=== PATIENT | female | born 1950 | race Caucasian/White ===

== ENCOUNTER → 2018-11-17 | Outpatient (CLI) | payer BC ==
--- NOTE | 2018-11-17 21:49 | ECHO ---
DATE OF PROCEDURE: 11/17/2018 REFERRING PHYSICIAN: Dmitry Theodore INDICATION: Chronic respiratory failure with hypoxia HEIGHT: 165 cm WEIGHT: 83 kg DIMENSIONS: IVS: 1.0 LV: 4.1 LVPW: 1.1 LA: 2.8 Aorta: 2.7 IVC: 1.3 Mitral E wave velocity: 80, A-wave: 65 E prime septal: 7.2. E prime lateral: 12.5. Left atrial volume index: 15 FINDINGS The study is of fair technical quality. The patient is in sinus rhythm. Left ventricle is of normal size and hyperdynamic function. I estimate overall left ventricular ejection fraction (LVEF) around 70%. Based on limited quality of images I cannot rule out subtle wall motion abnormalities. Right ventricle does not appear enlarged and is normally contractile. Both atria appear normal. Aortic, mitral and tricuspid valves appear normal. Pulmonic valve was not visualized. No pericardial effusion is noted. Inferior vena cava is of small caliber and appropriately collapses with respiration indicative of normal central venous pressure. Aortic root is normal. Aortic arch was not seen. Abdominal aorta appears normal. Doppler interrogation of aortic valve reveals no stenosis or insufficiency. There is trace mitral insufficiency. Tricuspid valve is functionally competent. Pulmonic valve was not well seen. Mitral inflow pattern and tissue Doppler imaging of mitral annulus reveal probably normal diastolic function of left ventricle even though septal tissue Doppler velocity is reduced. CONCLUSIONS: 1. Study is of limited technical quality. 2. Normal LV size with hyperdynamic LV systolic function and probably normal diastolic function. 3. No significant aortic, mitral and tricuspid valvular disease. 4. Normal central venous pressure. 5. Unable to estimate pulmonary artery pressure, but no signs to suggest pulmonary hypertension. COMMENT: Subacute bacterial endocarditis (SBE) prophylaxis is not recommended.
== END ==
LOC: M CARPUL 11:32
PROVIDERS: ATTEND Internal Medicine Pulmonary Disease
DX: J96.11 Chronic respiratory failure with hypoxia (principal)

== ENCOUNTER 2023-07-01 09:44 | Inpatient (IN) | payer BC, MEDICARE ==
[2023-07-01] VITALS (11 sets, daily range): BP systolic 129–164; BP diastolic 64–115; TEMP 97.2–98.8; O2SAT 85–95
[~2023-07-01] VITALS: Ht 165.1 cm; Wt 85.9 kg
[2023-07-01] MEDS ORDERED: methylPREDNISolone 125MG 2ML VIAL IV ONE (10:10)
[2023-07-01 10:36] LABS: ABG BASE EXCESS 17.3 (-2.0-2.0); ABG HCO3 50.7 MMOL/L (22.0-26.0); ABG O2 SATURATION 83.8 % (95.0-99.0); ABG STANDARD HCO3 41.1 MMOL/L. (22.0-26.0); ABG TOTAL CO2 54.4 MMOL/L (23.0-31.0)
[2023-07-01] MEDS: IPRATROPIUM 0.5MG/ALBUTEROL 2.5MG INH SOL UD 3ML (DUONEB) NEB PRN ×2 (10:39→13:59)
[2023-07-01 10:40] LABS: ABG PARTIAL PRESSURE CO2 120.2 mmHg (35.0-45.0); ABG PARTIAL PRESSURE O2 44.7 mmHg (75.0-100.0); ABG pH (ARTERIAL) 7.243 UNITS (7.350-7.450)
[2023-07-01] MEDS ORDERED: cefTRIAXone SOD 2 GM in D5W MINI-BAG PLUS 50 ML IV ONE (11:10)
[2023-07-01] MEDS ORDERED: AZITHROMYCIN INJ 500 MG, VIAL MATE ADAPTER 1 EACH in D5W 250 ML IV ONE (11:10)
[2023-07-01 11:12] LABS: BASO # 0.1 10^3/uL (0.0-0.2); BASO % 0.7 % (0.0-1.0); EOS # 0.1 10^3/uL (0.0-0.5); HEMATOCRIT 43.8 % (36.0-47.0); HEMOGLOBIN 13.2 g/dl (12.0-15.5); LYMPH # 0.4 10^3/uL (1.5-5.0); LYMPH % 5.3 % (24.0-44.0); MEAN CORPUSCULAR HEMOGLOBIN 31.1 pg (27.0-33.0); MEAN CORPUSCULAR HGB CONC 30.1 g/dl (32.0-36.5); MEAN CORPUSCULAR VOLUME 103.3 fl (80.0-96.0); MONO # 0.3 10^3/uL (0.0-0.8); MONO % 4.5 % (2.0-8.0); NEUTROPHILS # 6.3 10^3/uL (1.5-8.5); NEUTROPHILS % 87.8 % (36.0-66.0); PLATELET COUNT, AUTOMATED 147 10^3/uL (150-450); RED BLOOD COUNT 4.24 10^6/uL (4.00-5.40); WHITE BLOOD COUNT 7.2 10^3/uL (4.0-10.0)
[2023-07-01 11:23] LABS: INR 1.02; PROTHROMBIN TIME 13.1 SECONDS (12.5-14.5)
[2023-07-01 11:47] LABS: THYROID STIMULATING HORMONE 0.799 uIU/ML (0.55-4.78); THYROXINE (T4) 8.8 UG/DL (4.5-10.9)
[2023-07-01 11:51] LABS: ALBUMIN 3.4 G/DL (3.2-5.2); ALKALINE PHOSPHATASE 91 U/L (46-116); ALT/SGPT 16 U/L (7.0-40); AST/SGOT 32 U/L (<34); BILIRUBIN,DIRECT < 0.1 MG/DL (<0.4); BILIRUBIN,TOTAL 0.3 MG/DL (0.3-1.2); BLOOD UREA NITROGEN 11 MG/DL (9-23); CALCIUM LEVEL 8.6 MG/DL (8.3-10.6); CARBON DIOXIDE LEVEL > 40.0 MMOL/L (20-31); CHLORIDE LEVEL 98 MMOL/L (98-107); CREATININE FOR GFR 0.62 MG/DL (0.55-1.30); GLOMERULAR FILTRATION RATE > 60.0 (>39); GLUCOSE, FASTING 115 MG/DL (74-106); POTASSIUM SERUM 5.2 MMOL/L (3.5-5.1); SODIUM LEVEL 145 MMOL/L (136-145); TOTAL PROTEIN 6.8 G/DL (5.7-8.2)
[2023-07-01 13:00] LABS: ABG BASE EXCESS 14.5 (-2.0-2.0); ABG HCO3 44.2 MMOL/L (22.0-26.0); ABG O2 SATURATION 89.8 % (95.0-99.0); ABG PARTIAL PRESSURE O2 51.4 mmHg (75.0-100.0); ABG STANDARD HCO3 38.2 MMOL/L. (22.0-26.0); ABG TOTAL CO2 46.8 MMOL/L (23.0-31.0); ABG pH (ARTERIAL) 7.346 UNITS (7.350-7.450)
[2023-07-01 13:01] LABS: ABG PARTIAL PRESSURE CO2 82.7 mmHg (35.0-45.0)
[2023-07-01] MEDS ORDERED: MED REC IN PROGRESS XX SCH (13:35)
[2023-07-01] MEDS ORDERED: FURO40TA2 PO (13:41)
[2023-07-01] MEDS ORDERED: FLUT50SP17 EN (13:41)
[2023-07-01] MEDS ORDERED: LEVO75TA4 PO (13:41)
[2023-07-01] MEDS ORDERED: MONT10TA97 PO (13:41)
[2023-07-01] MEDS ORDERED: FLUT1BLS8 (13:41)
[2023-07-01] MEDS ORDERED: PARO40TA2 PO (13:41)
[2023-07-01] MEDS ORDERED: ATOR1TAB21 PO (13:41)
[2023-07-01] MEDS ORDERED: ALBU2.5V10 INH (13:41)
[2023-07-01] MEDS: PANTOPRAZOLE 40MG VIAL IV SCH (17:00)
[2023-07-01] MEDS: methylPREDNISolone 125MG 2ML VIAL IV SCH (18:03)
[2023-07-01] MEDS: SYMBICORT 160/4.5MCG INHALER 6GM INH SCH (19:38)
[2023-07-01] MEDS: ENOXAPARIN 30MG/0.3ML SYRINGE (J1650 PER 10MG) SC SCH (20:54)
[2023-07-02] VITALS (17 sets, daily range): BP systolic 113–161; BP diastolic 59–88; TEMP 96.9–97.8; O2SAT 91–100
[2023-07-02] MEDS: methylPREDNISolone 125MG 2ML VIAL IV SCH ×3 (03:16→17:06)
[2023-07-02 05:21] LABS: ALBUMIN 3.4 G/DL (3.2-5.2); ALKALINE PHOSPHATASE 84 U/L (46-116); ALT/SGPT 18 U/L (7.0-40); AST/SGOT 15 U/L (<34); BILIRUBIN,TOTAL 0.4 MG/DL (0.3-1.2); BLOOD UREA NITROGEN 15 MG/DL (9-23); CALCIUM LEVEL 8.9 MG/DL (8.3-10.6); CARBON DIOXIDE LEVEL > 40.0 MMOL/L (20-31); CHLORIDE LEVEL 98 MMOL/L (98-107); CREATININE FOR GFR 0.61 MG/DL (0.55-1.30); GLOMERULAR FILTRATION RATE > 60.0 (>39); GLUCOSE, FASTING 130 MG/DL (74-106); PHOSPHORUS LEVEL 3.6 MG/DL (2.4-5.1); POTASSIUM SERUM 4.6 MMOL/L (3.5-5.1); SODIUM LEVEL 144 MMOL/L (136-145); TOTAL PROTEIN 6.6 G/DL (5.7-8.2)
[2023-07-02 05:40] LABS: ABG BASE EXCESS 13.3 (-2.0-2.0); ABG HCO3 41.9 MMOL/L (22.0-26.0); ABG PARTIAL PRESSURE O2 78.9 mmHg (75.0-100.0); ABG STANDARD HCO3 37.1 MMOL/L. (22.0-26.0); ABG TOTAL CO2 44.2 MMOL/L (23.0-31.0)
[2023-07-02 05:42] LABS: ABG PARTIAL PRESSURE CO2 74.2 mmHg (35.0-45.0)
[2023-07-02] MEDS: LEVOTHYROXINE 75MCG TABLET (0.075MG) PO SCH (05:49)
[2023-07-02] MEDS: SYMBICORT 160/4.5MCG INHALER 6GM INH SCH ×2 (07:15→19:08)
[2023-07-02] MEDS: TIOTROPIUM INHALER/CAPSULE (SPIRIVA) INH SCH (07:15)
[2023-07-02] MEDS: PANTOPRAZOLE 40MG VIAL IV SCH (09:07)
[2023-07-02] MEDS: cefTRIAXone SOD 1 GM in D5W MINI-BAG PLUS 50 ML IV SCH (11:18)
[2023-07-02] MEDS ORDERED: IPRATROPIUM 0.5MG/ALBUTEROL 2.5MG INH SOL UD 3ML (DUONEB) NEB PRN (12:10)
[2023-07-02] MEDS: IPRATROPIUM 0.5MG/ALBUTEROL 2.5MG INH SOL UD 3ML (DUONEB) NEB SCH ×4 (12:16→23:18)
[2023-07-02] MEDS: AZITHROMYCIN 250MG TABLET PO SCH (12:36)
[2023-07-02] MEDS ORDERED: AZITHROMYCIN INJ 500 MG, VIAL MATE ADAPTER 1 EACH in NS 250 ML IV SCH (13:00)
[2023-07-02] MEDS: ENOXAPARIN 30MG/0.3ML SYRINGE (J1650 PER 10MG) SC SCH (20:04)
[2023-07-03] VITALS (10 sets, daily range): BP systolic 115–140; BP diastolic 58–88; TEMP 96.9–98.3; O2SAT 92–100
[2023-07-03] MEDS: methylPREDNISolone 125MG 2ML VIAL IV SCH ×3 (01:10→17:35)
[2023-07-03] MEDS: IPRATROPIUM 0.5MG/ALBUTEROL 2.5MG INH SOL UD 3ML (DUONEB) NEB SCH ×6 (02:43→22:36)
[2023-07-03] MEDS: LEVOTHYROXINE 75MCG TABLET (0.075MG) PO SCH (05:03)
[2023-07-03 05:53] LABS: ALBUMIN 3.2 G/DL (3.2-5.2); ALKALINE PHOSPHATASE 72 U/L (46-116); ALT/SGPT 15 U/L (7.0-40); AST/SGOT 14 U/L (<34); BILIRUBIN,TOTAL 0.3 MG/DL (0.3-1.2); BLOOD UREA NITROGEN 27 MG/DL (9-23); CALCIUM LEVEL 9.1 MG/DL (8.3-10.6); CARBON DIOXIDE LEVEL > 40.0 MMOL/L (20-31); CHLORIDE LEVEL 98 MMOL/L (98-107); CREATININE FOR GFR 0.71 MG/DL (0.55-1.30); GLOMERULAR FILTRATION RATE > 60.0 (>39); GLUCOSE, FASTING 143 MG/DL (74-106); PHOSPHORUS LEVEL 3.3 MG/DL (2.4-5.1); POTASSIUM SERUM 4.3 MMOL/L (3.5-5.1); SODIUM LEVEL 142 MMOL/L (136-145); TOTAL PROTEIN 6.1 G/DL (5.7-8.2)
[2023-07-03 06:06] LABS: ABG BASE EXCESS 7.9 (-2.0-2.0); ABG HCO3 33.8 MMOL/L (22.0-26.0); ABG O2 SATURATION 98.4 % (95.0-99.0); ABG PARTIAL PRESSURE CO2 53.1 mmHg (35.0-45.0); ABG PARTIAL PRESSURE O2 111.6 mmHg (75.0-100.0); ABG STANDARD HCO3 31.7 MMOL/L. (22.0-26.0); ABG TOTAL CO2 35.5 MMOL/L (23.0-31.0); ABG pH (ARTERIAL) 7.422 UNITS (7.350-7.450)
[2023-07-03] MEDS: TIOTROPIUM INHALER/CAPSULE (SPIRIVA) INH SCH (07:18)
[2023-07-03] MEDS: SYMBICORT 160/4.5MCG INHALER 6GM INH SCH ×2 (07:18→19:55)
[2023-07-03] MEDS: AZITHROMYCIN 250MG TABLET PO SCH (09:03)
[2023-07-03] MEDS: PANTOPRAZOLE 40MG VIAL IV SCH (09:03)
[2023-07-03] MEDS: cefTRIAXone SOD 1 GM in D5W MINI-BAG PLUS 50 ML IV SCH (10:52)
[2023-07-03] MEDS ORDERED: ENOXAPARIN 40MG/0.4ML SYRINGE (J1650 PER 10MG) SC SCH (21:00)
[2023-07-04] VITALS (35 sets, daily range): BP systolic 102–148; BP diastolic 55–87; TEMP 96–97.6; O2SAT 88–99
[2023-07-04] MEDS: METOPROLOL 5 MG/5 ML VIAL IV SCH ×3 (00:05→00:15)
[2023-07-04] MEDS: methylPREDNISolone 125MG 2ML VIAL IV SCH ×3 (02:22→18:24)
[2023-07-04] MEDS: IPRATROPIUM 0.5MG/ALBUTEROL 2.5MG INH SOL UD 3ML (DUONEB) NEB SCH ×6 (03:47→23:43)
[2023-07-04 04:53] LABS: ABG BASE EXCESS 13.7 (-2.0-2.0); ABG HCO3 41.9 MMOL/L (22.0-26.0); ABG O2 SATURATION 99.3 % (95.0-99.0); ABG PARTIAL PRESSURE O2 150.5 mmHg (75.0-100.0); ABG STANDARD HCO3 37.6 MMOL/L. (22.0-26.0); ABG TOTAL CO2 44.1 MMOL/L (23.0-31.0); ABG pH (ARTERIAL) 7.397 UNITS (7.350-7.450)
[2023-07-04 04:56] LABS: ABG PARTIAL PRESSURE CO2 69.7 mmHg (35.0-45.0)
[2023-07-04] MEDS: LEVOTHYROXINE 75MCG TABLET (0.075MG) PO SCH (06:25)
[2023-07-04 06:41] LABS: ALBUMIN 3.2 G/DL (3.2-5.2); ALKALINE PHOSPHATASE 75 U/L (46-116); ALT/SGPT 60 U/L (7.0-40); AST/SGOT 36 U/L (<34); BILIRUBIN,TOTAL 0.3 MG/DL (0.3-1.2); BLOOD UREA NITROGEN 24 MG/DL (9-23); CALCIUM LEVEL 8.8 MG/DL (8.3-10.6); CARBON DIOXIDE LEVEL > 40.0 MMOL/L (20-31); CHLORIDE LEVEL 98 MMOL/L (98-107); CREATININE FOR GFR 0.68 MG/DL (0.55-1.30); GLOMERULAR FILTRATION RATE > 60.0 (>39); GLUCOSE, FASTING 131 MG/DL (74-106); PHOSPHORUS LEVEL 4.1 MG/DL (2.4-5.1); POTASSIUM SERUM 4.4 MMOL/L (3.5-5.1); SODIUM LEVEL 141 MMOL/L (136-145); TOTAL PROTEIN 6.2 G/DL (5.7-8.2)
[2023-07-04] MEDS ORDERED: dilTIAZem 25MG/5ML VIAL IV STA (07:33)
[2023-07-04] MEDS ORDERED: NS 1,000 ML IV ONE (08:00)
[2023-07-04] MEDS: TIOTROPIUM INHALER/CAPSULE (SPIRIVA) INH SCH (08:46)
[2023-07-04] MEDS: SYMBICORT 160/4.5MCG INHALER 6GM INH SCH ×2 (08:46→20:32)
[2023-07-04] MEDS: MIDODRINE 5 MG TAB PO SCH ×2 (09:48→12:00)
[2023-07-04] MEDS: PANTOPRAZOLE 40MG VIAL IV SCH (09:48)
[2023-07-04] MEDS: APIXABAN 5 MG TAB (ELIQUIS) PO SCH ×2 (09:49→21:10)
[2023-07-04] MEDS: CEFDINIR 300 MG CAP (OMNICEF) PO SCH ×2 (09:49→21:10)
[2023-07-04] MEDS: guaiFENesin ER TABLET 600 MG TAB PO SCH ×2 (09:49→21:10)
[2023-07-04] MEDS: AZITHROMYCIN 250MG TABLET PO SCH (09:49)
[2023-07-04] MEDS ORDERED: diltiaZEM 125 MG in NS 100 ML IV SCH (10:00)
[2023-07-04] MEDS: dilTIAZem 30 MG TAB PO SCH ×3 (12:17→23:55)
[2023-07-04] MEDS ORDERED: ONDANSETRON 4MG 2ML VIAL IV ONE (13:00)
[2023-07-04] MEDS ORDERED: ONDANSETRON 4MG 2ML VIAL IV PRN (17:00)
[2023-07-05] VITALS (9 sets, daily range): BP systolic 128–143; BP diastolic 63–79; TEMP 97.2–98.1; O2SAT 89–100
[2023-07-05] MEDS: methylPREDNISolone 125MG 2ML VIAL IV SCH ×3 (02:03→18:43)
[2023-07-05] MEDS: IPRATROPIUM 0.5MG/ALBUTEROL 2.5MG INH SOL UD 3ML (DUONEB) NEB SCH ×6 (03:16→23:30)
[2023-07-05] MEDS: LEVOTHYROXINE 75MCG TABLET (0.075MG) PO SCH (05:49)
[2023-07-05] MEDS: dilTIAZem 30 MG TAB PO SCH ×3 (05:50→18:43)
[2023-07-05 05:56] LABS: ABG BASE EXCESS 11.1 (-2.0-2.0); ABG HCO3 39.1 MMOL/L (22.0-26.0); ABG O2 SATURATION 98.2 % (95.0-99.0); ABG PARTIAL PRESSURE O2 109.7 mmHg (75.0-100.0); ABG STANDARD HCO3 34.9 MMOL/L. (22.0-26.0); ABG TOTAL CO2 41.2 MMOL/L (23.0-31.0); ABG pH (ARTERIAL) 7.375 UNITS (7.350-7.450)
[2023-07-05 05:59] LABS: ABG PARTIAL PRESSURE CO2 68.4 mmHg (35.0-45.0)
[2023-07-05 06:15] LABS: ALBUMIN 3.1 G/DL (3.2-5.2); ALKALINE PHOSPHATASE 70 U/L (46-116); ALT/SGPT 91 U/L (7.0-40); AST/SGOT 40 U/L (<34); BILIRUBIN,TOTAL 0.3 MG/DL (0.3-1.2); BLOOD UREA NITROGEN 25 MG/DL (9-23); CARBON DIOXIDE LEVEL > 40.0 MMOL/L (20-31); CHLORIDE LEVEL 100 MMOL/L (98-107); CREATININE FOR GFR 0.64 MG/DL (0.55-1.30); GLOMERULAR FILTRATION RATE > 60.0 (>39); GLUCOSE, FASTING 135 MG/DL (74-106); PHOSPHORUS LEVEL 4.4 MG/DL (2.4-5.1); POTASSIUM SERUM 4.8 MMOL/L (3.5-5.1); SODIUM LEVEL 142 MMOL/L (136-145)
[2023-07-05] MEDS: TIOTROPIUM INHALER/CAPSULE (SPIRIVA) INH SCH (08:36)
[2023-07-05] MEDS: SYMBICORT 160/4.5MCG INHALER 6GM INH SCH ×2 (08:38→19:36)
[2023-07-05] MEDS: APIXABAN 5 MG TAB (ELIQUIS) PO SCH ×2 (09:42→20:54)
[2023-07-05] MEDS: guaiFENesin ER TABLET 600 MG TAB PO SCH ×2 (09:43→20:54)
[2023-07-05] MEDS: AZITHROMYCIN 250MG TABLET PO SCH (09:43)
[2023-07-05] MEDS: PANTOPRAZOLE 40MG TAB (PROTONIX) PO SCH (09:43)
[2023-07-05] MEDS: CEFDINIR 300 MG CAP (OMNICEF) PO SCH ×2 (09:50→20:54)
[2023-07-06] MEDS: methylPREDNISolone 125MG 2ML VIAL IV SCH ×2 (02:04→09:42)
[2023-07-06] MEDS: IPRATROPIUM 0.5MG/ALBUTEROL 2.5MG INH SOL UD 3ML (DUONEB) NEB SCH ×6 (02:58→23:06)
[2023-07-06] MEDS: dilTIAZem 30 MG TAB PO SCH ×5 (05:18→23:00)
[2023-07-06] MEDS: LEVOTHYROXINE 75MCG TABLET (0.075MG) PO SCH (05:24)
[2023-07-06 06:00] VITALS: BP 155/83; TEMP 97.7; O2SAT 97
[2023-07-06 07:47] LABS: ALBUMIN 2.9 G/DL (3.2-5.2); ALKALINE PHOSPHATASE 64 U/L (46-116); ALT/SGPT 79 U/L (7.0-40); AST/SGOT 19 U/L (<34); BILIRUBIN,TOTAL 0.4 MG/DL (0.3-1.2); BLOOD UREA NITROGEN 26 MG/DL (9-23); CALCIUM LEVEL 8.7 MG/DL (8.3-10.6); CARBON DIOXIDE LEVEL 40 MMOL/L (20-31); CHLORIDE LEVEL 100 MMOL/L (98-107); GLOMERULAR FILTRATION RATE > 60.0 (>39); GLUCOSE, FASTING 135 MG/DL (74-106); PHOSPHORUS LEVEL 4.2 MG/DL (2.4-5.1); POTASSIUM SERUM 5.3 MMOL/L (3.5-5.1); SODIUM LEVEL 140 MMOL/L (136-145); TOTAL PROTEIN 5.7 G/DL (5.7-8.2)
[2023-07-06 08:10] VITALS: O2SAT 92
[2023-07-06] MEDS: TIOTROPIUM INHALER/CAPSULE (SPIRIVA) INH SCH (08:11)
[2023-07-06] MEDS: SYMBICORT 160/4.5MCG INHALER 6GM INH SCH ×2 (08:11→19:42)
[2023-07-06] MEDS: PANTOPRAZOLE 40MG TAB (PROTONIX) PO SCH (09:42)
[2023-07-06] MEDS: AZITHROMYCIN 250MG TABLET PO SCH (09:42)
[2023-07-06] MEDS: CEFDINIR 300 MG CAP (OMNICEF) PO SCH ×2 (09:42→21:56)
[2023-07-06] MEDS: APIXABAN 5 MG TAB (ELIQUIS) PO SCH ×2 (09:42→21:56)
[2023-07-06] MEDS: guaiFENesin ER TABLET 600 MG TAB PO SCH ×2 (09:42→21:56)
[2023-07-06 12:57] VITALS: BP 143/74
[2023-07-06 13:57] VITALS: BP 146/73; TEMP 97.7; O2SAT 87
[2023-07-06 19:44] VITALS: O2SAT 95
[2023-07-06 20:43] VITALS: BP 137/71; TEMP 98.1; O2SAT 90
[2023-07-06] MEDS: methylPREDNISolone 40MG 1ML VIAL IV SCH (21:56)
[2023-07-06] MEDS ORDERED: MAALOX 30 ML SUSP *UDC PO PRN (22:35)
[2023-07-07] MEDS: IPRATROPIUM 0.5MG/ALBUTEROL 2.5MG INH SOL UD 3ML (DUONEB) NEB SCH ×6 (03:21→23:19)
[2023-07-07] MEDS: dilTIAZem 30 MG TAB PO SCH ×3 (05:49→17:40)
[2023-07-07] MEDS: LEVOTHYROXINE 75MCG TABLET (0.075MG) PO SCH (05:50)
[2023-07-07 05:51] VITALS: BP 136/78; TEMP 97.5; O2SAT 94
[2023-07-07 07:34] LABS: ALKALINE PHOSPHATASE 65 U/L (46-116); ALT/SGPT 73 U/L (7.0-40); AST/SGOT 17 U/L (<34); BILIRUBIN,TOTAL 0.4 MG/DL (0.3-1.2); BLOOD UREA NITROGEN 26 MG/DL (9-23); CALCIUM LEVEL 8.9 MG/DL (8.3-10.6); CARBON DIOXIDE LEVEL > 40.0 MMOL/L (20-31); CHLORIDE LEVEL 97 MMOL/L (98-107); CREATININE FOR GFR 0.68 MG/DL (0.55-1.30); GLOMERULAR FILTRATION RATE > 60.0 (>39); GLUCOSE, FASTING 125 MG/DL (74-106); PHOSPHORUS LEVEL 4.5 MG/DL (2.4-5.1); POTASSIUM SERUM 5.4 MMOL/L (3.5-5.1); SODIUM LEVEL 138 MMOL/L (136-145); TOTAL PROTEIN 5.6 G/DL (5.7-8.2)
[2023-07-07] MEDS: TIOTROPIUM INHALER/CAPSULE (SPIRIVA) INH SCH (07:41)
[2023-07-07] MEDS: SYMBICORT 160/4.5MCG INHALER 6GM INH SCH ×2 (07:41→19:14)
[2023-07-07] MEDS: methylPREDNISolone 40MG 1ML VIAL IV SCH (08:36)
[2023-07-07] MEDS: CEFDINIR 300 MG CAP (OMNICEF) PO SCH ×2 (08:36→21:12)
[2023-07-07] MEDS: PANTOPRAZOLE 40MG TAB (PROTONIX) PO SCH (08:36)
[2023-07-07] MEDS: guaiFENesin ER TABLET 600 MG TAB PO SCH ×2 (08:37→21:11)
[2023-07-07] MEDS: APIXABAN 5 MG TAB (ELIQUIS) PO SCH ×2 (08:38→21:12)
[2023-07-07 12:10] VITALS: BP 147/74
[2023-07-07 14:00] VITALS: BP 125/69; TEMP 98.2; O2SAT 95
[2023-07-07 19:17] VITALS: O2SAT 93
[2023-07-07 22:03] VITALS: BP 128/67; TEMP 98.1; O2SAT 97
[2023-07-08] MEDS: IPRATROPIUM 0.5MG/ALBUTEROL 2.5MG INH SOL UD 3ML (DUONEB) NEB SCH ×3 (04:06→11:02)
[2023-07-08] MEDS: LEVOTHYROXINE 75MCG TABLET (0.075MG) PO SCH (05:20)
[2023-07-08] MEDS: dilTIAZem 30 MG TAB PO SCH ×3 (05:24→12:24)
[2023-07-08 05:49] VITALS: BP 129/72; TEMP 98.1; O2SAT 97
[2023-07-08 05:56] LABS: ABG BASE EXCESS 7.7 (-2.0-2.0); ABG HCO3 36.3 MMOL/L (22.0-26.0); ABG PARTIAL PRESSURE O2 84.3 mmHg (75.0-100.0); ABG STANDARD HCO3 31.5 MMOL/L. (22.0-26.0); ABG TOTAL CO2 38.4 MMOL/L (23.0-31.0); ABG pH (ARTERIAL) 7.333 UNITS (7.350-7.450)
[2023-07-08 05:59] LABS: ABG PARTIAL PRESSURE CO2 69.9 mmHg (35.0-45.0)
[2023-07-08] MEDS: TIOTROPIUM INHALER/CAPSULE (SPIRIVA) INH SCH (07:27)
[2023-07-08] MEDS: SYMBICORT 160/4.5MCG INHALER 6GM INH SCH (07:27)
[2023-07-08 08:02] LABS: ALBUMIN 2.8 G/DL (3.2-5.2); ALKALINE PHOSPHATASE 75 U/L (46-116); ALT/SGPT 62 U/L (7.0-40); AST/SGOT 13 U/L (<34); BILIRUBIN,TOTAL 0.4 MG/DL (0.3-1.2); BLOOD UREA NITROGEN 23 MG/DL (9-23); CALCIUM LEVEL 8.5 MG/DL (8.3-10.6); CARBON DIOXIDE LEVEL > 40.0 MMOL/L (20-31); CHLORIDE LEVEL 98 MMOL/L (98-107); CREATININE FOR GFR 0.73 MG/DL (0.55-1.30); GLOMERULAR FILTRATION RATE > 60.0 (>39); GLUCOSE, FASTING 92 MG/DL (74-106); PHOSPHORUS LEVEL 3.9 MG/DL (2.4-5.1); POTASSIUM SERUM 5.1 MMOL/L (3.5-5.1); SODIUM LEVEL 140 MMOL/L (136-145); TOTAL PROTEIN 5.5 G/DL (5.7-8.2)
[2023-07-08] MEDS: APIXABAN 5 MG TAB (ELIQUIS) PO SCH (08:42)
[2023-07-08] MEDS: CEFDINIR 300 MG CAP (OMNICEF) PO SCH (08:42)
[2023-07-08] MEDS: PANTOPRAZOLE 40MG TAB (PROTONIX) PO SCH (08:42)
[2023-07-08] MEDS: guaiFENesin ER TABLET 600 MG TAB PO SCH (08:42)
[2023-07-08] MEDS ORDERED: predniSONE 20 MG TAB PO SCH (09:00)
[2023-07-08] MEDS ORDERED: DILT30TA PO (11:38)
[2023-07-08] MEDS ORDERED: TIOT18INH INH (11:38)
[2023-07-08] MEDS ORDERED: ELIQ5TAB PO (11:38)
[2023-07-08] MEDS ORDERED: SYMB16INH INH (11:38)
[2023-07-08] MEDS ORDERED: PRED20TA PO (11:38)
[2023-07-08] MEDS ORDERED: MUCI600T31 PO (11:38)
[2023-07-08 12:24] VITALS: BP 141/68
== END 2023-07-08 14:40 | disposition home or self-care (01) | DRG 133 ==
LOC: EDBD 09:44 → M ED 09:44 → M ED INP 13:41 → M ICU 15:44 → M PCU 07-03 21:48 → M MS5PR 07-05 15:06
PROVIDERS: ADMIT Internal Medicine Pulmonary Disease; ATTEND Family Medicine
DX: J96.21 Acute and chronic respiratory failure with hypoxia (principal); J15.69 Pneumonia due to other Gram-negative bacteria; G93.41 Metabolic encephalopathy; Z99.81 Dependence on supplemental oxygen; I48.91 Unspecified atrial fibrillation; F03.90 Unspecified dementia, unspecified severity, without behavioral disturbance, psychotic disturbance, mood disturbance, and anxiety; J44.1 Chronic obstructive pulmonary disease with (acute) exacerbation; J44.0 Chronic obstructive pulmonary disease with (acute) lower respiratory infection; F17.210 Nicotine dependence, cigarettes, uncomplicated; R91.8 Other nonspecific abnormal finding of lung field; E03.9 Hypothyroidism, unspecified; F41.9 Anxiety disorder, unspecified; F32.A Depression, unspecified; R32 Unspecified urinary incontinence; Z66 Do not resuscitate; Z79.890 Hormone replacement therapy; Z79.51 Long term (current) use of inhaled steroids; Z79.899 Other long term (current) drug therapy; Z79.01 Long term (current) use of anticoagulants; Z79.52 Long term (current) use of systemic steroids; Z20.822 Contact with and (suspected) exposure to COVID-19; J96.22 Acute and chronic respiratory failure with hypercapnia